=== PATIENT | male | born 1970 | race Caucasian/White ===

== ENCOUNTER → 2016-11-28 | Outpatient (CLI) | payer OTHER | END | disposition home or self-care (01) | LOC: C.LABBFT 15:28 | PROVIDERS: ATTEND Internal Medicine | DX: R74.8 Abnormal levels of other serum enzymes (principal) ==

== ENCOUNTER → 2016-12-22 | Outpatient (CLI) | payer OTHER ==
[2016-12-22 13:25] LABS: LYME DISEASE AB IGG NEG (NEG)
[2016-12-22 13:28] LABS: LYME DISEASE AB IGM NEG (NEG)
== END | disposition home or self-care (01) ==
LOC: C.LABBFT 10:42
PROVIDERS: ATTEND Internal Medicine
DX: Z00.00 Encounter for general adult medical examination without abnormal findings (principal); W57.XXXA Bitten or stung by nonvenomous insect and other nonvenomous arthropods, initial encounter

== ENCOUNTER → 2017-03-21 | Outpatient (CLI) | payer OTHER ==
[~2017-03-21] VITALS: Ht 172.7 cm; Wt 90.0 kg
[2017-03-21 16:30] VITALS: BP 130/87; PULSE 95; Ht 172.7 cm; Wt 90.0 kg
== END | disposition home or self-care (01) ==
LOC: C.NEUR 14:13
PROVIDERS: ATTEND Internal Medicine Pulmonary Disease
DX: G47.30 Sleep apnea, unspecified (principal); R53.83 Other fatigue; R74.8 Abnormal levels of other serum enzymes; R06.09 Other forms of dyspnea; R30.0 Dysuria; K58.9 Irritable bowel syndrome, unspecified; N39.0 Urinary tract infection, site not specified; Z87.891 Personal history of nicotine dependence; Z79.899 Other long term (current) drug therapy

== ENCOUNTER 2018-01-29 18:48 | Emergency (ER) | payer OTHER ==
[~2018-01-29] VITALS: Ht 172.7 cm; Wt 90.7 kg
[2018-01-29 19:01] VITALS: TEMP 36.7; Ht 172.7 cm; Wt 90.7 kg
[2018-01-29] MEDS ORDERED: MoRPHine SULFATE 10 MG/ML CARP/VIAL IM STA (19:17)
[2018-01-29] MEDS ORDERED: KETOROLAC TROMETHAMINE 60 MG/2 ML VIAL IM STA (19:17)
[2018-01-29] MEDS ORDERED: DEXAMETHASONE SOD INJ 4 MG/ML 5 ML VIAL IM ONE (19:30)
[2018-01-29] MEDS ORDERED: DEXAMETHASONE SOD INJ 10 MG/ML VIAL IM SCH (19:45)
--- NOTE | 2018-01-29 19:52 | DIAGNOSTIC IMAGING REPORT ---
LUMBAR SPINE WITHOUT CT DOSE: 698.33 mGy.cm HISTORY: Pain low back pain rt sided siatica, no trauma TECHNIQUE: Multiaxial CT images of the lumbar spine were performed and reformatted in the sagittal and coronal plane without the use of contrast. A dose lowering technique was utilized adhering to the principles of ALARA. COMPARISON: None. FINDINGS: Normal alignment of the vertebral bodies. Minimal degenerative intervertebral this changes throughout. Minimal degenerative changes of the posterior elements and lateral facets. No major compromise of the spinal canal. No evidence for compression deformity. Paravertebral soft tissues are unremarkable. Potential mild multifactorial narrowing of the spinal canal at L4-L5. IMPRESSION: 1. Mild degenerative disc change throughout. 2. No major compromise of the spinal canal within limitations of this modality. 3. Mild broad-based bulging disc L4-L5 with potential mild multifactorial narrowing of the spinal canal. The above report was generated using voice recognition software. It may contain grammatical, syntax or spelling errors. Electronically signed by: Mak Baez M.D. 01/29/2018 7:51 PM Dictated Date/Time: 01/29/2018 7:49 PM
[2018-01-29] MEDS ORDERED: KETO10TA PO (20:05)
[2018-01-29] MEDS ORDERED: OXYC-57 PO (20:05)
[2018-01-29] MEDS ORDERED: PRED20TA PO (20:05)
--- NOTE | 2018-01-29 20:06 | EMERGENCY ROOM VISIT NOTE ---
History Report prepared by Isaias: Kevin Garcia Under the Supervision of: Dr. Chandler Massey D.O. First contact with patient: 19:11 Chief Complaint: BACK PAIN Stated Complaint: BACK/HIP PAIN History of Present Illness The patient is a 47 year old male who presents to the Emergency Room with complaints of persistent right low back pain since January 26, 2018. He states that he was going camping at that time when he initially noticed the pain when he bent over. He state the pain was radiating from his low back to his right hip and right upper leg. He took Ibuprofen the next day and used ice packs, though no relief. He states that he saw his chiropractor this morning and they took XRs , which showed concern in his L5. He states the chiropractor told him to ice the area. He states that the pain worsened with icing. He contacted his chiropractor again and was told to ice it some more and contact his PCP. His PCP was closing and was advised to go to the ED for further evaluation. He tried resting, sitting, and standing, though no relief. He described the pain as an achy throbbing sensation. He notes his right foot became numb just prior to arrival. He denies any incontinence. He has a history of sinus surgery and tonsillectomy. Source of History: patient Onset: January 26, 2018 Position: back (lower) Quality: ache, other (throbbing) Timing: other (persistent) Associated Symptoms: + numbness (right foot) Note: Notes right hip pain and right leg pain. Denies any incontinence. Review of Systems See HPI for pertinent positives & negatives. A total of 10 systems reviewed and were otherwise negative. Past Medical & Surgical Medical Problems: (1) IBS (irritable bowel syndrome) Surgical Problems: (1) H/O sinus surgery (2) Hx of tonsillectomy Family History Diabetes mellitus Heart disease Seizures Social History Smoking Status: Former Smoker Alcohol Use: occasionally (1/2 beers/week) Drug Use: none Marital Status: Housing Status: lives with significant other Occupation Status: employed Current/Historical Medications Scheduled Prednisone (Prednisone), 3 TAB PO DAILY Scheduled PRN Ketorolac (Toradol), 10 MG PO Q6H PRN for Pain Oxycodone/Acetaminophen 5MG/325MG (Percocet 5MG/325MG), 1 TAB PO Q6H PRN for Pain Allergies Coded Allergies: ALLERGY2 (Verified Allergy, Unknown, 10/17/05) Clopidogrel (Unverified Allergy, Unknown, n/v, 10/30/09) Physical Exam Vital Signs Date Time Temp Pulse Resp B/P (MAP) Pulse Ox O2 Delivery O2 Flow Rate FiO2 01/29/18 19:01 36.7 98 20 143/92 97 Room Air Physical Exam CONSTITUTIONAL/VITAL SIGNS: Reviewed / noted above. GENERAL: Non-toxic in appearance. INTEGUMENTARY: Warm, dry, and [place]. HEAD: Normocephalic. EYES: without scleral icterus or trauma. ENT/OROPHARYNX: clear and moist. LYMPHADENOPATHY/NECK: Is supple without lymphadenopathy or meningismus. RESPIRATORY: Lungs clear and equal. CARDIOVASCULAR: Regular rate and rhythm. GI/ABDOMEN: Soft and nontender. No organomegaly or pulsatile mass. No rebound or guarding. Normal bowel sounds. EXTREMITIES: Warm and well perfused. Mild positive straight leg raise on right, reflexes in tact, no motor or sensory deficits in lower extremities. BACK: No CVA tenderness. NEUROLOGICAL: Intact without focal deficits. PSYCHIATRIC: normal affect. MUSCULOSKELETAL: Normally developed with good muscle tone. Medical Decision & Procedures ER Provider Diagnostic Interpretation: Radiology results as stated below per my review and radiologist interpretation: LUMBAR SPINE WITHOUT CT DOSE: 698.33 mGy.cm HISTORY: Pain low back pain rt sided siatica, no trauma TECHNIQUE: Multiaxial CT images of the lumbar spine were performed and reformatted in the sagittal and coronal plane without the use of contrast. A dose lowering technique was utilized adhering to the principles of ALARA. COMPARISON: None. FINDINGS: Normal alignment of the vertebral bodies. Minimal degenerative intervertebral this changes throughout. Minimal degenerative changes of the posterior elements and lateral facets. No major compromise of the spinal canal. No evidence for compression deformity. Paravertebral soft tissues are unremarkable. Potential mild multifactorial narrowing of the spinal canal at L4-L5. IMPRESSION: 1. Mild degenerative disc change throughout. 2. No major compromise of the spinal canal within limitations of this modality. 3. Mild broad-based bulging disc L4-L5 with potential mild multifactorial narrowing of the spinal canal. The above report was generated using voice recognition software. It may contain grammatical, syntax or spelling errors. Electronically signed by: Mak Baez M.D. 01/29/2018 7:51 PM Dictated Date/Time: 01/29/2018 7:49 PM Medications Administered Medications (Trade) Dose Ordered Sig/Carlos Alberto Route Start Time Stop Time Status Last Admin Dose Admin Ketorolac Tromethamine (Toradol Inj) 60 mg NOW STAT IM 01/29/18 19:17 01/29/18 19:21 DC 01/29/18 19:45 60 MG Morphine Sulfate (MoRPHine SULFATE INJ) 6 mg NOW STAT IM 01/29/18 19:17 01/29/18 19:21 DC 01/29/18 19:44 6 MG Dexamethasone Sodium Phosphate (Decadron Inj) 10 mg TODAY@194 IM 01/29/18 19:45 01/29/18 23:59 01/29/18 19:44 10 MG ED Course 1911: Previous medical records were reviewed. The patient was evaluated in room A11B. A complete history and physical examination was performed. 1916: Ordered Morphine Sulfate 6 mg IM and Toradol 60 mg IM 1944: Ordered Decadron 10 mg IM 2007: I reassessed the patient at this time. He is feeling better and resting comfortably. I discussed the results and treatment plan with the patient. I answered all pertaining questions that he had. He expressed understanding and verbalized agreement. The patient will be discharged home. Medical Decision Differentials considered include cauda equina syndrome, conus medullaris, spinal cord compression syndrome, peripheral nerve compression, fractures or subluxations, intra-abdominal pathology such as abdominal aortic aneurysm or kidney stones, muscle strain, transverse myelitis, and spinal cord injury. This is a 47-year-old male who presents to the ED with a chief complaint of low back pain that radiates into his right leg. The patient states that his symptoms initially started on Monday, 3 days ago when he bent over to pick something up. He states that he saw his chiropractor today in the morning and had some x-rays done today as well. The L5 disc space was narrowed. The patient states that after a chiropractic adjustment earlier today his pain did not improve and seemed to get a little worse. He states that at one point today his foot began feeling numb. He denies any bowel or bladder dysfunction. Denies any abdominal pain. His physical exam reveals a mild increased discomfort with raising his right leg. His reflexes in his lower extremities are normal as is a sensation and motor function. A CT scan of lumbar region reveals mild broad-based disc bulge in the L4-5 region with some multifactorial narrowing of the spinal canal. The patient was treated with IM morphine, I am Decadron and IM Toradol. He was discharged on Toradol, Percocet and prednisone. He was told to follow-up with his PCP for further evaluation and care. I did recommend physical therapy as well as pain management if symptoms are persistent. [place] Drug Monitoring Program Search Results: patient reviewed within database, no issues identified Medication Reconcilliation Current Medication List: was personally reviewed by me Blood Pressure Screening Patient's blood pressure: Elevated blood pressure Blood pressure disposition: Elevated BP felt to be situational Impression Primary Impression: Sciatica Scribe Attestation The scribe's documentation has been prepared under my direction and personally reviewed by me in its entirety. I confirm that the note above accurately reflects all work, treatment, procedures, and medical decision making performed by me. Departure Information Dispostion Home / Self-Care Prescriptions Oxycodone/Acetaminophen 5MG/325MG (PERCOCET 5MG/325MG) Tab 1 TAB PO Q6H Y for Pain, #20 TAB Prov: Chandler Massey D.O. 01/29/18 Prednisone (Prednisone) 20 Mg Tab 3 TAB PO DAILY for 4 Days, #12 TAB Prov: Chandler Massey D.O. 01/29/18 Ketorolac (Toradol) 10 Mg Tab 10 MG PO Q6H Y for Pain, #20 TAB Prov: Chandler Massey D.O. 01/29/18 Referrals Aj Caicedo M.D. (PCP) Forms HOME CARE DOCUMENTATION FORM, IMPORTANT VISIT INFORMATION Patient Instructions ED Sciatica, My [facility] Additional Instructions Toradol as prescribed. Prednisone as prescribed. Percocet as prescribed. No driving within 6 hours of use. Do not take additional Tylenol while taking Percocet. Follow-up with PCP for referrals to physical therapy and pain management. Your CT scan reveals findings suggesting a mild broad-based disc bulge in the L4 -L5 area. This is likely responsible for your symptoms.
[2018-01-29 20:30] VITALS: BP 144/82; PULSE 82; O2SAT 98
== END 2018-01-29 20:32 | disposition home or self-care (01) ==
LOC: C.EDB 18:49 → C.EDA 20:32
DX: M54.41 Lumbago with sciatica, right side (principal); K58.9 Irritable bowel syndrome, unspecified; Z87.891 Personal history of nicotine dependence; Z88.8 Allergy status to other drugs, medicaments and biological substances

== ENCOUNTER → 2018-04-24 | Outpatient (CLI) | payer OTHER ==
[~2018-04-24] MED LIST: KETO10TA PO; OXYC-57 PO
--- NOTE | 2018-04-25 06:28 | SPLIT NIGHT TECHNICIAN REPORT ---
[facility] Split Night Polysomnogram - Cmo & President Report Study date: 04/24/2018 Referring Physician: JULIO PRICE M.D. Name: LITO BENDER Cmo & President: Jamila Turpin, PSGT. Date of : 1970 Height: 47 years, Height 5' 8" Sex: Male Weight: 198 lbs Age: 47 Neck Circum:16 inches BMI: Medications: 30.1 IBP, Magnesium Patient History 47-YEAR-OLD MALE IN ROOM 5, PRESENTS FOR A SPLIT NIGHT STUDY. HE STATES THAT HE USES C-PAP EVERYDAY BUT CONTINUES TO HAVE CHRONIC FATIGUE.ESS= 17, NECK= 16 INCHES.... Parameters Monitored NPSG: E1-M2, E2-M1, Fp1-M2, Fp2-M1, F3-M2, F4-M2, F4-M1, C3-M2, C4-M2, C4-M1, O1-M2, O2-M2, O2-M1, T3-M2, T4-M1, P3-M2, P4-M1, CHIN1, CHIN2, HR, EKG, Legs, PFLOW, SNOR, FLOW, CFLOW, Tidal Volume, THOR, ABDO, SpO2, PLTH, CPRESS, ETCO2 Wave, ETCO2, pH SLEEP SUMMARY DATA DIAGNOSTIC TREATMENT Lights Out: 9:41:36 PM 1:04:36 AM Lights On: 1:00:06 AM 5:30:06 AM Total Recording Time (TRT): 201.1 min. 265.9 min. Total Sleep Time (TST): 128.5 min. 254.5 min. NREM Time: 122.0 min. 180.5 min. REM Time: 6.5 min. 74.0 min. Sleep Period Time (SPT): 136.5 min. 263.5 min. Sleep Efficiency (SE): 65 % 96 % Sleep Latency: 62.0 min. 1.0 min. Arousal Index: 16.3 5.4 PAP Treatment Levels: 5, 6 * Optimal Pressure(s) SLEEP STAGING DATA DIAGNOSTIC TREATMENT Duration (min) TST % Duration (min) TST % Stage Wake: 71.6 min. -- 11.4 min. -- WASO: 8.0 min. -- 9.0 min. -- NREM: 122.0 min. 95 % 180.5 min. 71 % Stage N1: 6.0 min. 5 % 4.0 min. 2 % Stage N2: 116.0 min. 90 % 176.5 min. 69 % Stage N3: 0.0 min. 0 % 0.0 min. 0 % REM: 6.5 min. 5 % 74.0 min. 29 % POSITIONAL DATA Event Count Index Event Count Index Supine: 132 62 4 0.5 Supine NREM: 124 61.0 1 0.3 Supine REM: 8 74 3 1 Non-Supine: N/A N/A N/A N/A Non-Supine NREM: N/A N/A N/A N/A Non-Supine REM: N/A N/A N/A N/A AROUSAL SUMMARY DATA: Event Count Index Event Count Index Apnea Arousals: 0 2.3 0 0.0 Hypopnea Arousals: 17 7.9 1 0.2 Snore Arousals: 4 1.9 1 0.2 PLM Arousals: 1 0.5 2 0.5 Non-Specific Arousals: 12 5.6 14 3.3 Total Arousals: 35 16.3 23 5.4 MYOCLONUS (PLM) Event Count Index Event Count Index PLM: 17 7.9 20 4.7 PLM AROUSAL: 1 0.5 2 0.5 PLM W/O AROUSAL 17 7.9 18 4.2 PLM W/RESP EVENT 2 0.0 0 0.0 MYOCLONUS (PLM) Event Count Index Event Count Index LM: 1 37.8 46 10.8 LM AROUSAL: 1 0.5 4 0.9 LM W/O AROUSAL LM W/RESP EVENT LM NON SPECIFIC 52 24.3 58 13.7 HEART RATE DATA DIAGNOSTIC TREATMENT Sleep (bpm): 72 64 REM (bpm): 89 92 NREM (bpm): 91 92 Tachycardia Count: 0 0 Tachycardia Duration: 0.00 0 Bradycardia Count: 0 0 Bradycardia Duration: 0.00 0 DIAGNOSTIC PORTION TREATMENT PORTION RESPIRATORY DATA Event Count Index Event Count Index AHI: -- 61.6 -- 0.5 RDI: -- 61.6 -- 1 Obstructive Apnea: 4 1.9 0 0.0 Central Apnea: 0 0.0 0 0.0 Mixed Apnea: 1 0.5 0 0.0 Hypopnea: 127 59.3 2 0.5 RERA: 0 0.0 2 0.5 Total Apneas: 5 2.3 0 0.0 RESPIRATORY DATA REM NREM SLEEP REM NREM SLEEP Supine Position: Obstructive Apneas: 0 4 4 0 0 0 Central Apneas: 0 0 0 0 0 0 Mixed Apneas: 0 1 1 0 0 0 Hypopneas: 8 119 127 1 1 2 RERA 0 0 0 2 0 2 Total Supine Events: 8 124 132 3 1 4 Supine AHI: 74 61.0 62 1 0.3 0.5 Supine RDI: 73.8 61.0 61.6 2.4 0.3 0.9 REM NREM SLEEP REM NREM SLEEP Non-Supine Position: Obstructive Apneas: N/A N/A N/A N/A N/A N/A Central Apneas: N/A N/A N/A N/A N/A N/A Mixed Apneas: N/A N/A N/A N/A N/A N/A Hypopneas: N/A N/A N/A N/A N/A N/A RERA N/A N/A N/A N/A N/A N/A Total Supine Events: N/A N/A N/A N/A N/A N/A Supine AHI: N/A N/A N/A N/A N/A N/A Supine RDI: N/A N/A N/A N/A N/A N/A OXYGEN DESTAURATION DATA: Event Count Index Event Count Index REM Desaturations: 8 73.8 6 4.9 NREM Desaturations: 136 66.9 3 1.0 SNORE DATA DIAGNOSTIC TREATMENT Snore Time: 4.8 1:05:36 AM Snore TST%: 2 3 Snore Arousal Count: 4 1 Snore Arousal Index: 1.9 0.2 Desaturation Event Summary: Minimum %SpO2 Event Count Mean/Min/Max Duration(sec.) Desaturation Index % Time In Bed > 90 146 20.7 / 5.0 / 60.0 24.1 80.4 86 - 90 26 23.6 / 5.0 / 60.0 18.5 18.7 81 - 85 0 N/A 0.0 0.9 76 - 80 0 N/A 0.0 0.0 71 - 75 0 N/A 0.0 0.0 66 - 70 0 N/A 0.0 0.0 61 - 65 0 N/A 0.0 0.0 56 - 60 0 N/A 0.0 0.0 51 - 55 0 N/A 0.0 0.0 < 50 0 N/A 0.0 0.0 OXYGEN SATURATION DATA DIAGNOSTIC TREATMENT SpO2 Mean Sleep: 91 % 92 % SpO2 Mean REM: 89 % 92 % SpO2 Mean NREM: 91 % 92 % SpO2 Minimum Sleep: 82 % 86 % SpO2 Minimum REM: 82 % 86 % SpO2 Minimum NREM: 83 % 87 % Time Below 90% (TST): 49.9 3.5 Time Below 88% (TST): 22.6 0.4 Total REM NREM Awake <50% 0.0 min. 0.0 min. 0.0 min. 0.0 min. 51 - 60% 0.0 min. 0.0 min. 0.0 min. 0.0 min. 61 - 70% 0.0 min. 0.0 min. 0.0 min. 0.0 min. 71 - 80% 0.0 min. 0.0 min. 0.0 min. 0.0 min. 81 - 90% 88.7 min. 10.6 min. 66.0 min. 12.0 min. 91 - 100% 363.9 min. 67.9 min. 234.8 min. 61.2 min. Average 92 92 92 92 Minimum SpO2 82 82 83 85 Desaturation Event Index 19.8 10.4 27.6 0.0 # Desat. Events below 89% 74 9 65 0 Time(%) with Saturation below 89% 8.7 0.7 7.7 0.2 Time(min.) with Saturation below 89% 39.3 3.2 35.1 1.0 Recording Cmo & President Comments: Split -Night: Mr. Bender slept in the supine position. No cardiac arrhythmia or PLM's noted. No bruxism noted. Snoring was noted and scored as a 2 on a scale of 1 through 5. (0=no snoring, 5=snoring loud enough to be heard through a closed door or down the [address]cke[address] way) At 1 am, MR. Bender has met specific Split-Night criteria during the diagnostic portion of this study. CPAP was initiated at +4 CMH2O and up-titrated to an optimal level of +6 CMH2O, which nearly eliminated all respiratory events and snoring. A Res med Air Fir N 20, was used during titration Mr. Bender awoke to use the restroom one time during the night. Mr. Bender stated, I did not sleep as well as I do when I am in my own bed. The final report will be interpreted and signed by a sleep physician. The completed physician report will then be placed in the patient medical record. Therapy Event: Therapy (cm H20) 0 5 6 Total Time at Pressure (min.) 198.5 163.8 100.2 TST at Pressure (min.) 128.5 160.3 94.2 # Periods 1 1 1 Sleep Onset (min.) 62.0 1.0 0.0 REM Onset (min.) 153.0 28.5 0.0 Sleep Efficiency % 64 97 94 Wakefulness (%) 35.3 2.1 6.0 Wakefulness (min.) 70.0 3.5 6.0 NREM 1 (%) 3.0 0.9 2.5 NREM 1 (min.) 6.0 1.5 2.5 NREM 2 (%) 58.4 61.4 75.8 NREM 2 (min.) 116.0 100.5 76.0 NREM 3 (%) 0.0 0.0 0.0 NREM 3 (min.) 0.0 0.0 0.0 REM (%) 3.3 35.6 15.7 REM (min.) 6.5 58.3 15.7 # Arousals 35 17 6 Arousal Index 16.3 6.4 3.8 # Snore 282 368 18 Snore Index 131.7 137.8 11.5 AHI 61.6 0.7 0.0 AHI Supine 61.6 0.7 0.0 AHI Non-Supine N/A N/A N/A NREM AHI 61.0 0.6 0.0 REM AHI 73.8 1.0 0.0 RDI 61.6 1.5 0.0 # Obstructive 4 0 0 # Central Ap 0 0 0 # Mixed 1 0 0 # Hypopneas 127 2 0 RERAS 0 2 0 Total Respiratory Events 132 4 0 Time Below SpO2 89.00% (min.) 37.1 1.2 0.0 Mean NREM SpO2 (%) 91 92 92 Mean REM SpO2 (%) 89 92 93 Mean Sleep SpO2 (%) 91 92 93 Min NREM SpO2 (%) 83 87 90 Min REM SpO2 (%) 82 86 90 Position Supine (min.) 128.5 160.3 94.2 Position Non-supine (min.) 0.0 0.0 0.0 LM Index Sleep 45.8 13.9 18.5 LM Index NREM 46.7 6.5 19.1 LM Index REM 27.7 26.8 15.3 Mean Heart Rate (bpm) 72 66 62 Min Heart Rate (bpm) 61 55 55
--- NOTE | 2018-05-07 08:16 | POLYSOMNOGRAPH REPORT ---
CLINICAL DATA: A 47-year-old male with BMI of 30, referred by Dr. Caicedo with a hiustory of sleep apnea, using CPAP with continued fatigue. [facility] This was a split night study. SLEEP ARCHITECTURE: For the diagnostic portion of the study, sleep period time was 136.5 minutes. Total sleep time was 128.5 minutes, divided between 122 minutes of non-REM sleep and 6.5 minutes of REM sleep. Sleep latency was delayed at 62 minutes. Sleep efficiency was 65%. Sleep consisted of stage N1 5%, stage N2 90%, and REM 5%. For the treatment portion of the study, sleep period time was 263.5 minutes. Total sleep time was 254.5 minutes divided between 180.5 minutes of non-REM sleep and 74 minutes of REM sleep. Sleep latency was 1 minute. Sleep efficiency was 96%. Sleep consisted of stage N1 2%, stage N2 69%, and REM 29%. AROUSAL DATA: Prior to treatment, 35 arousals were recorded for an index of 16.3 per hour. During treatment, 23 arousals were recorded for an index of 5.4 per hour. PLM DATA: Prior to treatment, 52 limb movements during sleep were noted for an index of 24.3 per hour. During treatment, 58 limb movements during sleep were noted for an index of 13.7 per hour. EKG: Heart rates ranged from 64-92 beats per minute. No arrhythmias were noted. RESPIRATORY DATA: Severe sleep apnea was documented prior to treatment. His diagnostic AHI was 61.6. There were 4 obstructive apneic episodes and 1 mixed apneic episode. There were 127 hypopneic episodes. The mean AHI with treatment was 0.5. There were 2 hypopneic episodes. OXIMETRY DATA: Nocturnal hypoxemia was seen prior to treatment. Oxygen princess was 82% during REM sleep prior to treatment. Mean saturation with treatment was 92%. CABIN CLEANER'S COMMENTS: The patient slept supine. Snoring was mild, rated 2 on a scale of 1-5. At 1:00 a.m., the patient met split night criteria. He used a ResMed AirFit N20 mask. He was titrated up to 6 cm water pressure. At this final pressure setting, he slept for 94.2 minutes with an AHI of 0. IMPRESSION: Severe sleep apnea/hypopnea with a diagnostic AHI of 61.6 corrected with CPAP 6 cm water pressure utilizing a ResMed AirFit N20 mask. RECOMMENDATIONS: The patient should be started on CPAP at the above noted pressure setting. He should be seen back in followup within 90 days to document efficacy and compliance. AYDEND
== END | disposition home or self-care (01) ==
LOC: C.NEUR 20:00
PROVIDERS: ATTEND Family Medicine
DX: G47.30 Sleep apnea, unspecified (principal)